=== PATIENT | female | born 1940 | race Caucasian/White ===

== ENCOUNTER 2017-04-11 21:41 | Emergency (ER) | payer OTHER, BC ==
[2017-04-11 21:49] VITALS: BMI 23.8
--- NOTE | 2017-04-11 21:51 | DR.GENAD ---
HPI - HPI Comment HPI Comment: complaint of high blood pressure with eye floaters and tingling finger tips. no speech problems, no motor or neuro deficits. - Source History Provided: Patient - Mode of Arrival Mode of Arrival: Ambulatory - Timing Came on: Gradually - Duration Duration: Constant How lon Duration: Hours - Location Location: eyes and hands - Severity Severity: Mild - Modifying Factors Worsens:: unknown - Associated Signs and Symptoms Associated Signs and Symptoms: none - Other History Other History: took Mona-D this morning PMH - PMH Past Surgical History: Yes ROS - Review of Systems Constitutional: No Symptoms Reported Eyes: Other (floater that resolved) ENTM: No Symptoms Reported Respiratoy: No Symptoms Reported Cardiovascular: No Symptoms Reported Gastrointestinal/Abdominal: No Symptoms Reported Genitourinary: No Symptoms Reported Neurological: Paresthesia (right finger tips) Musculoskeletal: No Symptoms Reported Integumentary: No Symptoms Reported Hematologic/Lymphatic: No Symptoms Reported Endocrine: No Symptoms Reported Psychiatric: No Symptoms Reported All Other Systems: Reviewed and Negative PE - Vital Signs Vitals: Temperature 97.8 F Pulse Rate [Right Brachial] 66 Pulse Rate 77 Respiratory Rate 18 Blood Pressure [Right Arm] 148/74 Blood Pressure 205/93 O2 Sat by Pulse Oximetry 96 - General Limitations: No Limitations General Appearance: Alert, In No Apparent Distress - Head Head Exam: Normal Inspection - Eyes Eye exam: Normal Appearance, EOMI. negative: Scleral Icterus, Conjunctival Injection - ENT ENT Exam: Normal Exam, Normal Oropharynx External Ear Exam: Normal External Inspection Nose Exam: Normal Nose Exam Mouth Exam: Normal Inspection - Neck Neck Exam: Normal Inspection, Full ROM, Trachea Midline - Respiratory Respiratory Exam: Normal Lung Sounds Bilat. negative: Accessory Muscle Use, Respiratory Distress Respiratory Exam: Bilateral Clear to Auscultation - Cardiovascular Cardiovascular Exam: Regular Rate - Extremities Extremities Exam: Normal Inspection, Full ROM - Back Back Exam: Normal Inspection, Full ROM - Neurologic Neurological Exam: Alert, Oriented X3, CN II-XII Intact - Psychiatric Psychiatric Exam: Normal Mood - Skin Skin Exam: Intact, Normal Color Course - Treatment Treatment: patients BP dropped prior to any medication in ER. !44/71 at discharge and feeling normal now. Told to follow up with DR. Rucker. - Diagnosis Discharge Problem: Hypertension Qualifiers: Hypertension type: essential hypertension Qualified Code(s): I10 - Essential ( primary) hypertension - Discharge Plan Condition: Stable - Follow ups/Referrals Follow ups/Referrals: Shay Rucker [Primary Care Provider] - 3 days - Instructions
[2017-04-11] MEDS ORDERED: CATAPRES TAB 0.2 MG PO ONE (22:19)
[2017-04-11] MEDS ORDERED: CATAPRES TAB 0.2 MG ONE (22:20)
[2017-04-11 23:00] VITALS: BP 144/71
== END 2017-04-11 23:09 | disposition home or self-care (01) ==
LOC: ER 21:59
DX: I10 Essential (primary) hypertension (principal)
CPT/HCPCS: 99281; 99282

== ENCOUNTER 2017-12-26 08:51 | Day surgery (SDC) | payer OTHER, BC ==
[2017-12-26] MEDS ORDERED: TETRACAINE 0.5% OPHTH 1 DOSE AFFEYE ONE ×2 (08:58→11:08)
[2017-12-26] MEDS ORDERED: VIGAMOX 0.5% OPHTH 1 DOSE AFFEYE ONE ×5 (09:00→11:41)
[2017-12-26] MEDS ORDERED: PROLENSA OPHTH 1 DOSE AFFEYE ONE (09:12)
[2017-12-26] MEDS ORDERED: ALPHAGAN-P OPHTH 1 DOSE AFFEYE ONE (09:13)
[2017-12-26] MEDS ORDERED: CYCLOGYL 1% OPHTH 1 DOSE OP ONE ×4 (09:15→09:22)
[2017-12-26] MEDS ORDERED: MYDRIACIL OPHTH 1 DOSE AFFEYE ONE ×4 (09:15→09:22)
[2017-12-26] MEDS ORDERED: AK-DILATE 2.5% OPHTH 1 DOSE OP ONE ×4 (09:15→09:22)
[2017-12-26] MEDS ORDERED: NS 500 ML IV 500 ML IV ONE (09:17)
[2017-12-26] MEDS ORDERED: BETADINE OPHTH SOLN 5% EACHEYE ONE (11:09)
[2017-12-26] MEDS ORDERED: XYLOCAINE-MPF 1% IJ ONE ×2 (11:22→11:27)
[2017-12-26] MEDS ORDERED: ADRENALINE CHL INJ IJ ONE ×2 (11:22→11:27)
[2017-12-26] MEDS ORDERED: DUOVISC IO ONE ×2 (11:22→11:27)
[2017-12-26] MEDS ORDERED: BSS OPHTH (PLAIN) 500 ML with VANCOMYCIN HCL 500 MG VIAL 25 MG, ADRENALINE CHL INJ 1 MG IR ONE ×3 (11:27)
[2017-12-26] MEDS ORDERED: VISCOAT 0.5 ML IO ONE (11:35)
[2017-12-26 12:00] VITALS: BP 156/74
[2017-12-26] MEDS ORDERED: VERSED ONE (14:03)
== END 2017-12-26 12:05 | disposition home or self-care (01) ==
LOC: SURG1 08:51
PROVIDERS: ATTEND Ophthalmology
PROC: 08DK3ZZ Extraction of Left Lens, Percutaneous Approach (ICD-10-PCS; principal; 2017-12-26 16:45)
PROC: 08RK3JZ Replacement of Left Lens with Synthetic Substitute, Percutaneous Approach (ICD-10-PCS; principal; 2017-12-26 16:45)
DX: H25.12 Age-related nuclear cataract, left eye (principal); H25.012 Cortical age-related cataract, left eye; H52.222 Regular astigmatism, left eye
CPT/HCPCS: 99100; A9270; A4217; J0170; J2250; J3370